=== PATIENT | female | born 1985 | race American Indian/Alaskan Native ===

== ENCOUNTER 2016-03-16 11:18 | Emergency (ER) | payer MEDICAID ==
[2016-03-16 11:45] VITALS: BP 109/64
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
[2016-03-16 12:36] LABS: Basophils % (Auto) 0.3 % (0.0-1.8); Eosinophils % (Auto) 1.2 % (0.0-4.3); Hematocrit 34.5 % (30.3-42.9); Hemoglobin 11.7 gm/dl (10.1-14.3); Mean Corpuscular HGB Conc 34 % (30-34); Mean Corpuscular Hemoglobin 30 pg (28-32); Mean Corpuscular Volume 88 fl (79-97); Platelet Count 249 K/mm3 (140-440); Red Blood Count 3.92 M/mm3 (3.65-5.03); Red Cell Distribution Width 14.2 % (13.2-15.2); White Blood Count 9.1 K/mm3 (4.5-11.0)
[2016-03-16 12:53] LABS: Alanine Aminotransferase 6 units/L (7-56); Albumin 3.4 g/dL (3.9-5); Albumin/Globulin Ratio 1.1 %; Alkaline Phosphatase 49 units/L (35-129); Anion Gap 17 mmol/L; Bilirubin,Total 0.2 mg/dL (0.1-1.2); Blood Urea Nitrogen 3 mg/dL (7-17); Calcium 8.6 mg/dL (8.4-10.2); Carbon Dioxide 21 mmol/L (22-30); Glucose 95 mg/dL (65-100); Potassium 3.5 mmol/L (3.6-5.0); Sodium 135 mmol/L (137-145); Total Protein 6.5 g/dL (6.3-8.2)
--- NOTE | 2016-03-16 13:04 | Ultrasound Report ---
Gestation: Single Position: Breech Amniotic Fluid: Normal RAFAEL = cm Placenta: Anterior Placental Grade: 0 Heart Rate: 152 BPM Cervical length: 4.3 cm (Normal > 3 cm) NEUROANATOMY VISUALIZED: Normal Choroid Plexus Cisterna Magnum Cerebellum Lateral Ventricle ANATOMY VISUALIZED: Normal Stomach Kidneys Bladder Diaphragm 4 Chamber Heart Heart 3 Vessel Cord Abd. Cord Insert SPINE VISUALIZED: Normal Longitudinal Transverse BPD: 4.6 cm = 19 w 5 d HC: 17 cm = 19 w 4 AC: 14.5 cm = 19 w 6 d FL: 2.9 cm = 18 w 5 d HC/AC Ratio: 1.1 Cephalic Index: 79.9 Estimated Weight: 288 grams Clinical age = 19 w 0 d EDC: 08/10/16 US Gest. Age = 19 w 3 d EDC: 08/07/16
[2016-03-16 14:36] LABS: Bacteria,Urine 2+ /HPF (Negative); Bilirubin,Urine NEG (Negative); Blood,Urine NEG (Negative); Ketones,Urine NEG (Negative); Leukocyte Esterase,Urine NEG (Negative); Mucus,Urine FEW /HPF; Nitrite,Urine NEG (Negative); Protein,Urine <15 mg/dL mg/dL (Negative); Urobilinogen,Urine < 2.0 mg/dL (<2.0)
--- NOTE | 2016-03-17 19:01 | ED Elopement Review ---
ED Pt Elopement review - Results review Lab results: Laboratory Tests 03/16/16 03/16/16 03/16/16 12:13 12:13 12:13 WBC 9.1 RBC 3.92 Hgb 11.7 Hct 34.5 MCV 88 MCH 30 MCHC 34 RDW 14.2 Plt Count 249 Lymph % (Auto) 20.7 Br[place]ley % (Auto) 6.3 Eos % (Auto) 1.2 Baso % (Auto) 0.3 Lymph # 1.9 Br[place]ley # 0.6 Eos # 0.1 Baso # 0.0 Seg Neutrophils % 71.5 H Seg Neutrophils # 6.5 Sodium 135 L Potassium 3.5 L Chloride 101.0 Carbon Dioxide 21 L Anion Gap 17 BUN 3 L Creatinine 0.4 L Estimated GFR > 60 BUN/Creatinine Ratio 7.50 Glucose 95 Calcium 8.6 Total Bilirubin 0.2 AST 12 ALT 6 L Alkaline Phosphatase 49 Total Protein 6.5 Albumin 3.4 L Albumin/Globulin Ratio 1.1 HCG, Quant 88182 H Urine Color Urine Turbidity Urine pH Ur Specific [place] Urine Protein Urine Glucose (UA) Urine Ketones Urine Blood Urine Nitrite Urine Bilirubin Urine Urobilinogen Ur Leukocyte Esterase Urine WBC (Auto) Urine RBC (Auto) U Epithel Cells (Auto) Urine Bacteria (Auto) Urine Mucus 03/16/16 14:20 WBC RBC Hgb Hct MCV MCH MCHC RDW Plt Count Lymph % (Auto) [place] % (Auto) Eos % (Auto) Baso % (Auto) Lymph # [place] # Eos # Baso # Seg Neutrophils % Seg Neutrophils # Sodium Potassium Chloride Carbon Dioxide Anion Gap BUN Creatinine Estimated GFR BUN/Creatinine Ratio Glucose Calcium Total Bilirubin AST ALT Alkaline Phosphatase Total Protein Albumin Albumin/Globulin Ratio HCG, Quant Urine Color Yellow Urine Turbidity Clear Urine pH 7.0 Ur Specific [place] 1.014 Urine Protein <15 mg/dl Urine Glucose (UA) 50 Urine Ketones Neg Urine Blood Neg Urine Nitrite Neg Urine Bilirubin Neg Urine Urobilinogen < 2.0 Ur Leukocyte Esterase Neg Urine WBC (Auto) 1.0 Urine RBC (Auto) 1.0 U Epithel Cells (Auto) 4.0 Urine Bacteria (Auto) 2+ Urine Mucus Few - Call Back decision Pt Call Back Decision: Pt to F/U with PMD
== END 2016-03-16 12:30 | disposition left against medical advice (07) ==
LOC: ED 11:18
DX: O26.892 Other specified pregnancy related conditions, second trimester (principal); R10.9 Unspecified abdominal pain; Z3A.19 19 weeks gestation of pregnancy; Z53.21 Procedure and treatment not carried out due to patient leaving prior to being seen by health care provider
CPT/HCPCS: 36415; 76805; 80053; 81001; 84702; 85025